=== PATIENT | female | born 1985 | race Caucasian/White ===

== ENCOUNTER → 2020-05-13 | Outpatient (CLI) | payer MEDICAID ==
[2020-05-13 11:18] LABS: BASO % 0.1 % (0.0-1.0); HEMATOCRIT 40.4 % (36.0-47.0); HEMOGLOBIN 12.6 g/dl (12.0-15.5); LYMPH # 1.8 10^3/uL (1.5-5.0); LYMPH % 23.8 % (24.0-44.0); MEAN CORPUSCULAR HEMOGLOBIN 28.2 pg (27.0-33.0); MEAN CORPUSCULAR HGB CONC 31.2 g/dl (32.0-36.5); MEAN CORPUSCULAR VOLUME 90.4 fl (80.0-96.0); MONO # 0.4 10^3/uL (0.0-0.8); MONO % 5.9 % (0.0-5.0); NEUTROPHILS # 5.3 10^3/uL (1.5-8.5); NEUTROPHILS % 69.9 % (36.0-66.0); PLATELET COUNT, AUTOMATED 302 10^3/uL (150-450); RED BLOOD COUNT 4.47 10^6/uL (4.00-5.40); WHITE BLOOD COUNT 7.5 10^3/uL (4.0-10.0)
[2020-05-13 11:43] LABS: ALBUMIN 3.4 GM/DL (3.2-5.2); ALT/SGPT 24 U/L (12-78); BILIRUBIN,TOTAL 0.2 MG/DL (0.2-1.0); BLOOD UREA NITROGEN 13 MG/DL (7-18); CALCIUM LEVEL 9.1 MG/DL (8.5-10.1); CARBON DIOXIDE LEVEL 25 MEQ/L (21-32); CHLORIDE LEVEL 110 MEQ/L (98-107); CHOLESTEROL LEVEL 180 MG/DL (<200); CHOLESTEROL RISK RATIO 4.285 (<5); CREATININE FOR GFR 0.78 MG/DL (0.55-1.30); FREE T4 0.73 NG/DL (0.76-1.46); GLOMERULAR FILTRATION RATE > 60.0 (>60); GLUCOSE, FASTING 89 MG/DL (70-100); HDL CHOLESTEROL 42 MG/DL (>40); LDL CHOLESTEROL 112 MG/DL (<100); NON-HDL-C 138 MG/DL; POTASSIUM SERUM 4.3 MEQ/L (3.5-5.1); SODIUM LEVEL 141 MEQ/L (136-145); TOTAL PROTEIN 7.2 GM/DL (6.4-8.2); TRIGLYCERIDES LEVEL 130 MG/DL (<150)
== END ==
LOC: M LAB 09:59
PROVIDERS: ATTEND Family Medicine
DX: E66.01 Morbid (severe) obesity due to excess calories (principal); F32.9 Major depressive disorder, single episode, unspecified; Z87.898 Personal history of other specified conditions

== ENCOUNTER → 2020-10-02 | Outpatient (REF) | payer MEDICAID ==
[2020-10-02 17:05] LABS: FREE T4 0.73 NG/DL (0.76-1.46); THYROID STIMULATING HORMONE 1.93 uIU/ML (0.358-3.740)
== END ==
LOC: M SFHCADAM 13:11
PROVIDERS: ATTEND Family Medicine
DX: R94.6 Abnormal results of thyroid function studies (principal)

== ENCOUNTER → 2020-10-02 | Outpatient (CLI) | payer MEDICAID ==
--- NOTE | 2020-10-03 09:15 | REP ---
INDICATION: DYSPNEA ON EXERTION. COMPARISON: No comparison study. TECHNIQUE: Three views... FINDINGS: The lungs are well inflated and free of infiltrate. The pleural angles are sharp. The heart size is normal. Pulmonary vasculature is not increased. No significant bony abnormality is seen. IMPRESSION: Negative chest x-ray. <Electronically signed by Isra Muhammad > 10/03/20 0916
== END ==
LOC: M ADAMS 13:10
PROVIDERS: ATTEND Family Medicine
DX: R06.00 Dyspnea, unspecified (principal)

== ENCOUNTER → 2020-10-22 | Outpatient (REF) | payer MEDICAID | LOC: M LAB REF 16:54 → M LABDRWAD 16:54 | PROVIDERS: ATTEND Internal Medicine Cardiovascular Disease | DX: R06.00 Dyspnea, unspecified (principal) ==

== ENCOUNTER → 2020-12-04 | Outpatient (CLI) | payer MEDICAID ==
[2020-12-04 17:20] LABS: FREE T4 0.73 NG/DL (0.76-1.46); THYROID STIMULATING HORMONE 1.44 uIU/ML (0.358-3.740)
== END ==
LOC: M LAB 15:39
PROVIDERS: ATTEND Family Medicine
DX: E03.9 Hypothyroidism, unspecified (principal)

== ENCOUNTER → 2021-01-23 | Outpatient (CLI) | payer MEDICAID ==
--- NOTE | 2021-01-25 14:42 | SLEEPCENT ---
DATE: 01/23/2021 ORDERED BY: SANDRA Gonzales Nocturnal polysomnography was performed for evaluation of sleep physiology in this patient with a history of prolonged sleep latency, snoring, and witnessed apneas. Eight hours and 1 minute of data were reviewed. There were 391.5 minutes of sleep identified. Sleep latency was normal at 5.5 minutes. REM latency was delayed at 118.5 minutes. Sleep architecture was fair with a period of wake around 3:00 a.m. and some lack of progression. There were two REM cycles noted. Overall sleep efficiency was 83%. The electrocardiogram showed a sinus rhythm with an average heart rate of 80 beats per minute. EEG showed normal waveforms for wake and sleep. There were 31 respiratory events identified of 10 seconds in duration or greater for an apnea-hypopnea index of 5.1. The events were primarily obstructive hypopneas, not exclusive to sleep stage but seen in the supine posture. Arousals from respiratory events occurred only 2.8 times per hour, and there were rare oxygen desaturations below 90%. There was some minor activity in the limb leads. Limb movement arousal index was 6. Snoring was noted over the course of the study. IMPRESSION: Mild positional obstructive sleep apnea syndrome (G47.33). Apnea-hypopnea index 5.1. RECOMMENDATION: The patient should be encouraged to participate in sleep position retraining. Should sleep symptoms persist, referral [facility] to [facility] for [facility] could be considered. cc: CEZAR ACUNA DO
== END ==
LOC: M SLEEP 20:00
PROVIDERS: ATTEND Nurse Practitioner Family
DX: R06.83 Snoring (principal)

== ENCOUNTER → 2021-02-27 | Outpatient (CLI) | payer MEDICAID ==
--- NOTE | 2021-03-01 18:11 | SLEEPCENT ---
DATE: 02/27/2021 ORDERED BY: SANDRA Gonzales Nocturnal polysomnography was performed for the titration of pressure therapy in this patient with obstructive sleep apnea syndrome, apnea-hypopnea index of 5.1. For testing a ResMed F20 full face mask of small size was used, 4 cm of water pressure were applied to the circuit, and the lights were extinguished. Eight hours and 36 minutes of data were reviewed. There were 355.5 minutes of sleep identified. Sleep latency was mildly prolonged at 34.5 minutes. REM latency was also mildly prolonged at 196.5 minutes. Sleep architecture improved later in the study on optimal pressure therapy and there was one long REM cycle. Overall sleep efficiency was 69.8%. The electrocardiogram showed a sinus rhythm with an average heart rate of 80 beats per minute. EEG showed normal waveforms for wake and sleep. Respiratory events were fully palliated with CPAP at a pressure of +5 and remaining measures of sleep physiology were normal. IMPRESSION: Obstructive sleep apnea syndrome (G47.33). RECOMMENDATION: Nightly use of pressure therapy 5 cm of water. cc: CEZAR ACUNA, DO
== END ==
LOC: M SLEEP 20:00
PROVIDERS: ATTEND Nurse Practitioner Family
DX: G47.33 Obstructive sleep apnea (adult) (pediatric) (principal)

== ENCOUNTER → 2021-03-03 | Outpatient (CLI) | payer MEDICAID | LOC: M LABSMTC 12:20 | PROVIDERS: ATTEND Pediatrics | DX: Z20.822 Contact with and (suspected) exposure to COVID-19 (principal) ==

== ENCOUNTER → 2021-04-07 | Outpatient (CLI) | payer MEDICAID | LOC: M LAB 10:41 | PROVIDERS: ATTEND Psychiatry & Neurology Neurology | DX: G40.209 Localization-related (focal) (partial) symptomatic epilepsy and epileptic syndromes with complex partial seizures, not intractable, without status epilepticus (principal) ==

== ENCOUNTER → 2021-04-22 | Outpatient (CLI) | payer MEDICAID ==
[2021-04-22 12:43] LABS: BASO % 0.1 % (0.0-1.0); EOS # 0.1 10^3/uL (0.0-0.5); EOS % 1.5 % (0.0-3.0); HEMATOCRIT 40.3 % (36.0-47.0); HEMOGLOBIN 12.8 g/dl (12.0-15.5); LYMPH # 1.8 10^3/uL (1.5-5.0); LYMPH % 18.8 % (24.0-44.0); MEAN CORPUSCULAR HEMOGLOBIN 28.1 pg (27.0-33.0); MEAN CORPUSCULAR HGB CONC 31.8 g/dl (32.0-36.5); MEAN CORPUSCULAR VOLUME 88.4 fl (80.0-96.0); MONO # 0.6 10^3/uL (0.0-0.8); MONO % 5.9 % (2.0-8.0); NEUTROPHILS % 73.4 % (36.0-66.0); PLATELET COUNT, AUTOMATED 296 10^3/uL (150-450); RED BLOOD COUNT 4.56 10^6/uL (4.00-5.40); WHITE BLOOD COUNT 9.6 10^3/uL (4.0-10.0)
[2021-04-22 13:09] LABS: ALT/SGPT 22 U/L (12-78); BILIRUBIN,TOTAL 0.2 MG/DL (0.2-1.0); BLOOD UREA NITROGEN 13 MG/DL (7-18); CARBON DIOXIDE LEVEL 21 MEQ/L (21-32); CHLORIDE LEVEL 113 MEQ/L (98-107); CREATININE FOR GFR 0.75 MG/DL (0.55-1.30); GLOMERULAR FILTRATION RATE > 60.0 (>60); GLUCOSE, FASTING 124 MG/DL (70-100); LIPASE 183 U/L (73-393); POTASSIUM SERUM 4.5 MEQ/L (3.5-5.1); SODIUM LEVEL 137 MEQ/L (136-145); TOTAL PROTEIN 7.6 GM/DL (6.4-8.2)
== END ==
LOC: M LAB 11:35
PROVIDERS: ATTEND Physician Assistant
DX: R19.7 Diarrhea, unspecified (principal); K92.1 Melena

== ENCOUNTER → 2021-05-03 | Outpatient (REF) | payer MEDICAID | LOC: M SFHCADAM 15:58 | PROVIDERS: ATTEND Family Medicine | DX: R09.81 Nasal congestion (principal) ==

== ENCOUNTER → 2021-07-15 | Outpatient (REF) | payer MEDICAID ==
[2021-07-15 17:10] LABS: HEMOGLOBIN A1c 5.6 %
[2021-07-15 17:17] LABS: BLOOD UREA NITROGEN 11 MG/DL (7-18); CALCIUM LEVEL 9.3 MG/DL (8.5-10.1); CARBON DIOXIDE LEVEL 22 MEQ/L (21-32); CHLORIDE LEVEL 111 MEQ/L (98-107); GLOMERULAR FILTRATION RATE > 60.0 (>60); GLUCOSE, FASTING 114 MG/DL (70-100); POTASSIUM SERUM 3.9 MEQ/L (3.5-5.1); SODIUM LEVEL 139 MEQ/L (136-145)
== END ==
LOC: M SFHCADAM 14:42
PROVIDERS: ATTEND Family Medicine
DX: R73.9 Hyperglycemia, unspecified (principal)